=== PATIENT | female | born 1960 | race Two or more races ===

== ENCOUNTER → 2019-01-08 | Outpatient (CLI) | payer BC ==
--- NOTE | 2019-01-08 13:29 | RAD ---
EXAM: Cervical spine, 4 views. HISTORY: Pain. COMPARISON: None. FINDINGS: 4 views of the cervical spine are obtained. There is degenerative endplate remodeling with anterior spurring at C6-C7. The vertebral bodies are normal in height and the disc spaces are preserved. There is slight facet arthropathy at multiple levels. IMPRESSION: 1. Multilevel degenerative change, primarily at C6-C7. 2. No acute osseous finding. Electronically signed by: Steffanie Keating MD (01/08/2019 1:26 PM) [place] [id number]
== END | disposition home or self-care (01) ==
LOC: LAB 12:37
PROVIDERS: ATTEND Registered Nurse
DX: M47.812 Spondylosis without myelopathy or radiculopathy, cervical region (principal); M12.88 Other specific arthropathies, not elsewhere classified, other specified site
CPT/HCPCS: 72040

== ENCOUNTER → 2019-10-03 | Outpatient (CLI) | payer BC ==
--- NOTE | 2019-10-03 12:00 | RAD ---
EXAM: Chest, 2 views. HISTORY: Cough. COMPARISON: None. FINDINGS: 2 views of the chest are obtained. There is no infiltrate, pleural effusion or pneumothorax. The heart is normal in size. There are healed rib fractures. IMPRESSION: No acute pulmonary finding. Electronically signed by: Steffanie Keating MD (10/03/2019 11:58 AM) [place] [id number]
== END | disposition home or self-care (01) ==
LOC: PMG 11:31
PROVIDERS: ATTEND Registered Nurse
DX: R05 Cough (principal)
CPT/HCPCS: 71046

== ENCOUNTER → 2020-11-18 | Outpatient (CLI) | payer BC ==
--- NOTE | 2020-11-18 16:45 | RAD ---
MR#: [id number] Date of Study: 11/18/2020 Ordering Physician: ROXIE BERTRAND, Referring Physician: LAINA SOUZA Tech: RT Jim (R) (N) APPROVED REPORT Test Type: Exercise Stress Nurse/Tech: RT Jim (R) (N) Allan Santamaria Test Indications: Chest pain Cardiac History: No known cardiac Resting Heart Rate: 57 bpm Resting Blood Pressure: 180/81mmHg Pretest Chest Pain: None Stress Symptoms Dyspnea POST EXERCISE Reason for Termination: Reached target heart rate Target HR: Yes Max HR: 135 bpm 100% of Maximum Predicted HR: 135 bpm Exercise duration: 9:27 min:sec, Stage Exercise capacity: 10METs Max Blood Pressure: 174/78mmHg Blood Pressure response to exercise: Normal blood pressure response during stress. Heart Rate response to exercise: Normal Chest Pain: No. Arrhythmia: No. ST Change: No. INTERPRETATION Stress EKG Conclusion: Baseline EKG showed sinus rhythm. No ischemic changes at peak stress. No arr hythmias. Imaging Protocol IMAGE PROTOCOL: Rest Tc-99m/stress Tc-99m 1 day Rest: Stress: Viability: Radiopharm.Tc99m SziqdhfelWd15l Sestamibi Vzcz10bYe 33mCi Duration 15min. 15min. Img Date 11/18/2020 11/18/2020 Inj-Img Qqbi64cmh. 60min. Rest Admin Site:IV - Left AntecubitalAdministrator: RT Jim (R)(N) Stress Admin Site: IV - Left AntecubitalAdministrator: RT Jim (R)(N) STRESS DATA End Diast. Vol.73.0mlAv. Heart Rate71.0bpm End Syst. Vol.9.0mlCO Index BSA0.0L/min Myocardial Ikwl879.0gEject. Cjmfxcss21.0% Stress Rates Pk. Fill Rate3.51EDV/secLVtime Pk. Fill 134.31msec Pk. Empty Rate3.82ESV/secLVtime Pk. Hjmxf399.12msec 1/3 Pk. Fill2.15EDV/sec Stress Scores Regional WT0.00Summed WT3.00 Regional WM0.00Summed WM0.00 Study quality was good. Left Ventricular size was Normal at Rest and Stress. Lung uptake was . Left Ventricular ejection fraction is 86%. The rest and stress images show normal perfusion, normal contraction and thickening. LV Perf. Quant 17 Seg. SSS0.00 17 Seg. SRS2.00 17 Seg. SDS0.00 Stress Defect Extent (% LAD)0.00Rest Defect Extent (% LAD)0.00Rev. Defect Extent (% LAD)0.00 Stress Defect Extent (% LCX) 0.00Rest Defect Extent (% LCX)0.00Rev. Defect Extent (% LCX)0.00 Stress Defect Extent (% RCA)0.00Rest Defect Extent (% RCA)0.00Rev. Defect Extent (% RCA)0.00 Stress Defect Extent (% INGE)0.00Rest Defect Extent (% INGE)0.00Rev. Defect Extent (% INGE)0.00 Conclusion 1. Treadmill exercise cardioisotope stress test did not show any evidence of ischemia or infarct. 2. Normal left ventricular systolic function with ejection fraction calculated at 86%. 3. Low risk for cardiac events. Signed by : Ammon Alicea, Electronically Approved : 11/18/2020 16:45:27
== END ==
LOC: NM 07:53
PROVIDERS: ATTEND Internal Medicine Cardiovascular Disease
DX: R07.9 Chest pain, unspecified (principal)
CPT/HCPCS: 78452; 93017; A9500; 96376

== ENCOUNTER 2022-01-08 07:32 | Emergency (ER) | payer BC ==
[~2022-01-08] VITALS: Ht 167.6 cm; Wt 67.0 kg
[2022-01-08 07:32] VITALS: BP 161/85
--- NOTE | 2022-01-08 07:37 | PHYS DOC ---
Adult General HPI HPI Patient is a 61-year-old female who presents with cat scratches on her right arm. States that she was playing with her cat this morning and it freaked out and scratched her up and down her arm. States that she is taking amoxicillin currently for an ear infection and wanted to know if that was appropriate. Denies any other injuries. States she is unable to have the tetanus vaccinations as she is allergic. Review of Systems Review of Systems Review of systems otherwise unremarkable except noted in HPI Physical Exam Physical Exam Constitutional: Well developed, well nourished, no acute distress, non-toxic appearance. [] Skin: Warm, dry, no erythema, no rash. Multiple scratches on right arm and forearm from endorsed Loss [] Extremities: No tenderness, no cyanosis, no clubbing, ROM intact, no edema. [] Neurologic: Alert and oriented X 3, normal motor function, normal sensory function, no focal deficits noted. [] Psychologic: Affect normal, judgement normal, mood normal. [] EKG EKG [] Radiology/Procedures Radiology/Procedures [] Heart Score C/O Chest Pain: No Risk Factors: Risk Factors: DM, Current or recent (<one month) smoker, HTN, HLP, family histo ry of CAD, obesity. Risk Scores: Risk Factors: DM, Current or recent (<one month) smoker, HTN, HLP, family history of CAD, obesity. Course & Med Decision Making Course & Med Decision Making Patient is a 61-year-old female who presents with cat scratches on her right arm Vital signs nonconcerning. Physical exam noted above. Started on Augmentin. Patient unable to take tetanus as she is allergic Discussed wound management at home. Given wound management instructions. Advised to follow-up with primary care physician tomorrow to update on ED visit. Gave return precautions to the ED. Patient grateful, verbalized understanding and agreed with plan of discharge. Dragon Disclaimer Dragon Disclaimer This electronic medical record was generated, in whole or in part, using a voice recognition dictation system. Departure Departure: Impression: Primary Impression: Cat scratch Disposition: 01 HOME / SELF CARE / HOMELESS Condition: STABLE Referrals: ALONDRA KUMAR MD (PCP) Patient Instructions: Cat Scratch Disease Additional Instructions: Thank you for coming into the emergency department tonight and allowing us to take care of you. Please read the attached information carefully to go over things we discussed. As long as you can tolerate it and are not allergic you can use Tylenol, ibuprofen and Benadryl as needed at home for symptom control. Please cease taking your amoxicillin at home and take your new antibiotic as prescribed and until gone. Please follow-up tomorrow morning with your primary care physician update on your ED visit and set up a follow-up as soon as you can. Please come back with new or concerning symptoms as discussed. Scripts Amoxicillin/Potassium Clav (AMOX TR-K CLV 875-125 MG TAB) 1 Each Tablet 1 TAB PO BID for cat scratch for 7 Days, #13 TAB Prov: ZACHARIAH ROSS MD 01/08/22 ZACHARIAH ROSS MD Jan 08, 2022 07:37
[2022-01-08] MEDS ORDERED: AMOX1TAB11 PO (07:50)
[2022-01-08] MEDS ORDERED: AMOXICILLIN/K CLAV 875/125MG TABLET. PO ONE (08:00)
== END 2022-01-08 08:09 | disposition home or self-care (01) ==
LOC: ER 07:32
DX: S40.811A Abrasion of right upper arm, initial encounter (principal); W55.03XA Scratched by cat, initial encounter; Y93.89 Activity, other specified; Y92.89 Other specified places as the place of occurrence of the external cause; Y99.8 Other external cause status
CPT/HCPCS: 99283